=== PATIENT | male | born 1965 | race Two or more races ===

== ENCOUNTER 2022-03-22 12:37 | Emergency (ER) | payer OTHER ==
[~2022-03-22] VITALS: Ht 200.7 cm; Wt 120.2 kg
[~2022-03-22 12:37] MED LIST: COZAAR50 MG PO
[2022-03-22] MEDS ORDERED: LASIX20 MG PO (13:03)
[2022-03-22] MEDS ORDERED: LIPITOR40 M1 PO (13:03)
[2022-03-22] MEDS ORDERED: ADULT LOW DOSE81 M1 PO (13:03)
[2022-03-22] MEDS ORDERED: TOPROL XL25 M1 PO (13:04)
== END 2022-03-22 14:19 | disposition home or self-care (01) ==
LOC: ER 12:37
DX: L05.01 Pilonidal cyst with abscess (principal)

== ENCOUNTER 2022-03-25 21:15 | Emergency (ER) | payer OTHER ==
[~2022-03-25] VITALS: Ht 200.7 cm; Wt 122.5 kg
[~2022-03-25 21:15] MED LIST changes: +ADULT LOW DOSE81 M1 PO; +LASIX20 MG PO; +LIPITOR40 M1 PO; +TOPROL XL25 M1 PO
== END 2022-03-26 00:19 | disposition home or self-care (01) ==
LOC: ER 21:15
DX: L02.91 Cutaneous abscess, unspecified (principal); I10 Essential (primary) hypertension